=== PATIENT | male | born 1965 | race Caucasian/White ===

== ENCOUNTER 2017-04-12 12:22 | Emergency (ER) | payer BC ==
[2017-04-12] MEDS ORDERED: cefTRIAXone 1,000 MG VIAL (IM USE) IM STA (13:01)
[2017-04-12] MEDS ORDERED: SULFAMETH-TMP DS STARTER PACK 2 TAB BTL PO STA (13:04)
--- NOTE | 2017-04-12 13:05 | ED ---
Skin/Abscess/FB HPI - General Chief complaint: Skin/Abscess/Foreign Body Stated complaint: cyst Time Seen by Provider: 04/12/17 12:48 Source: patient, RN notes reviewed, old records reviewed Mode of arrival: ambulatory Limitations: no limitations - History of Present Illness Initial comments: This is a 32-year-old male presenting to the emergency department chief complaint of the right buttocks abscess. Patient reports that he's had some previous abscesses over her left ear which were drained couple months ago. He states his bite him vaccinated cleared up. Patient reports that over the past 2 weeks he noticed some irritation and inflammation over the right buttocks. He states is painful whenever he has to sit. He states that last night he took about results back and tried to drain it already. Patient reports that he's had no known fever or chills. He reports that he has not had any antibiotics. - Related Data Previous Rx's Medication Instructions Recorded Cephalexin [Keflex] 500 mg PO Q6HR #40 cap 04/12/17 Sulfamethox-Tmp 800-160Mg [Bactrim 2 tab PO Q12HR #40 tab 04/12/17 DS 800-160 mg] Allergies Allergy/AdvReac Type Severity Reaction Status Date / Time No Known Allergies Allergy Verified 04/12/17 12:46 Review of Systems ROS Statement: Those systems with pertinent positive or pertinent negative responses have been documented in the HPI. ROS Other: All systems not noted in ROS Statement are negative. Past Medical History Past Medical History: No Reported History History of Any Multi-Drug Resistant Organisms: None Reported Past Surgical History: Hernia Repair Additional Past Surgical History / Comment(s): hernia x 3 Past Anesthesia/Blood Transfusion Reactions: Motion Sickness Past Psychological History: No Psychological Hx Reported Smoking Status: Current every day smoker Past Alcohol Use History: Occasional Past Drug Use History: None Reported - Past Family History Father Family Medical History: Cancer General Exam - General Exam Comments Initial Comments: Well-appearing 52-year-old male. No acute distress. Limitations: no limitations General appearance: alert, in no apparent distress Head exam: Present: atraumatic, normocephalic, normal inspection Eye exam: Present: normal appearance, PERRL, EOMI. Absent: scleral icterus, conjunctival injection, periorbital swelling ENT exam: Present: normal exam, normal oropharynx, mucous membranes moist Neck exam: Present: normal inspection. Absent: tenderness, meningismus, lymphadenopathy Respiratory exam: Present: normal lung sounds bilaterally. Absent: respiratory distress, wheezes, rales, rhonchi, stridor Cardiovascular Exam: Present: regular rate, normal rhythm, normal heart sounds. Absent: systolic murmur, diastolic murmur, rubs, gallop, clicks GI/Abdominal exam: Present: soft, normal bowel sounds. Absent: distended, tenderness, guarding, rebound, rigid Rectal exam: Present: other (Patient has a 5 cm abscess over the right inner buttock. Patient says is actively draining.) Extremities exam: Present: normal inspection, full ROM, normal capillary refill. Absent: tenderness, pedal edema, joint swelling, calf tenderness Back exam: Present: normal inspection Neurological exam: Present: alert, oriented X3, CN II-XII intact Psychiatric exam: Present: normal affect, normal mood Skin exam: Present: warm, dry, intact, normal color. Absent: rash Course Vital Signs 04/12/17 12:43 Temperature 99.2 F Pulse Rate 104 H Respiratory 20 Rate Blood Pressure 189/91 O2 Sat by Pulse 98 Oximetry Procedures - Incision & Drainage Time Out Performed?: Yes Indication: abscess Site: buttock (right buttock, no involvement of rectum) Size (cm): 5 Anesthetic Used: lidocaine 1% Amount (mLs): 6 I&D Cleaning Method: Iodine Sterile Field Used?: Yes Scalpel Used: #11 I&D Drainage Obtained: Pus, Blood Packing: Iodoform Culture Obtained?: Yes Patient Tolerated Procedure: well, no complications Medical Decision Making - Medical Decision Making Is a pleasant 52-year-old male presenting to emergency Department with a right buttock abscess. Patient reports he originally noticed this starting 2 weeks ago. He went to his primary care doctor and was told to come to emergency department for incision and drainage. Patient was incised and drained. Culture obtained. Some pus was removed from the site however. It appears to be just inflamed tissue for the most of the abscess. Patient was given 1 g of Rocephin IM. He is also given a starter pack for Bactrim DS. Patient took 2 pills in the emergency department. Patient will be discharged with Keflex and Bactrim. Discussed that he needs C1 taking antibiotics. Discussed close follow -up with surgeon or primary care provider on Saturday for packing removal. Patient agrees to treatment plan will comply. Return parameters were discussed. Disposition Clinical Impression: Abscess of right buttock Disposition: HOME SELF-CARE Condition: Good Instructions: Abscess Incision and Drainage (ED) Additional Instructions: Advised to complete the antibiotic prescriptions. Recommending follow-up with primary care provider or surgeon on Saturday for packing removal. Return to the emergency department if any alarming signs or symptoms occur. Prescriptions: Cephalexin [Keflex] 500 mg PO Q6HR #40 cap Sulfamethox-Tmp 800-160Mg [Bactrim DS 800-160 mg] 2 tab PO Q12HR #40 tab Referrals: Enrique Ledezma MD [Primary Care Provider] - 1-2 days Maurice Allen MD [STAFF PHYSICIAN] - 1-2 days Time of Disposition: 13:31
[2017-04-12] MEDS ORDERED: IBUPROFEN 600 MG STARTER PACK 4 TAB BTL PO STA (13:33)
[2017-04-12 14:01] VITALS: BP 160/86; PULSE 92; RESP 18; TEMP 98
== END 2017-04-12 13:59 | disposition home or self-care (01) ==
LOC: EC 12:22
DX: L02.31 Cutaneous abscess of buttock (principal); F17.200 Nicotine dependence, unspecified, uncomplicated
CPT/HCPCS: 87070; 87205; 99283; 10061; 96372; J0696

== ENCOUNTER 2023-05-07 11:29 | Day surgery (SDC) | payer BC ==
--- NOTE | 2023-05-06 13:48 | P.HPOR ---
History of Present Illness H&P Date: 05/06/23 Subjective: This is a 58 year old male that presents today for initial evaluation regarding a right elbow injury that occurred on 04/27/2023 when he was wrestling with his to be son-in-law and hyperflexed his elbow and felt immediate pop with pain and swelling along the posterior aspect of his elbow. Since the injury he has been unable to extend the elbow. 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 He denies any numbness or tingling. Denies any other areas of pain. Physical Examination: RUE: AIN/PI/Ulnar/Median motor intact. Radial/Ulnar/Median SILT. 2+/4 Radial/Ulnar pulses palpated. 5/5 APB, 5/5 FDI. Negative Finkelsteins, negative CMC grind, negative Durkan's compression. Palpable defect along the posterior olecranon area of triceps insertion with TTP at olecranon with swelling and bru ising. Patient unable to extend against gravity at the elbow. Biceps tendon palpable and cubital fossa, negative hook test. Elbow stable to varus and valgus stress. Nontender to palpation over lateral epicondyle Imaging: X-Rays of the right elbow 3V taken on 04/28/23 were reviewed and demonstrate chronic appearing calcifications in the lateral epicondylar region. 1cm post erior avulsed ossific fragment with 15mm of retraction from olecranon region. Mild bone spurring present at medial ulnohumeral joint. Impression: 1.) Right acute triceps tendon rupture Plan: Diagnosis and treatment options were discussed with the patient. Operative vs non operative treatments were discussed. 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 Risks and benefits of surgery including bleeding, infection, damage to surrounding tissue, need for further surgery, residual numbness were discussed and the patient wished to go forward with surgery. I anticipate at least 8 weeks off post operatively before his is able to weightbearing with the operative arm. Labs/EKG are ordered. MRI of right elbow is ordered for pre-operative planning. The patient was agreeable with this plan. -Chang Mclaughlin DO Orthopedic Hand/Upper Extremity Surgeon Past Medical History Past Medical History: Diabetes Mellitus, GERD/Reflux Additional Past Medical History / Comment(s): Diet controlled. History of Any Multi-Drug Resistant Organisms: None Reported Past Surgical History: Hernia Repair Additional Past Surgical History / Comment(s): 2 L inguinal hernias, 1 R inguinal hernia Past Anesthesia/Blood Transfusion Reactions: Motion Sickness Smoking Status: Current every day smoker, Light tobacco smoker - Past Family History Father Family Medical History: Cancer Additional Family Medical History / Comment(s): Colon cancer Medications and Allergies Home Medications Medication Instructions Recorded Confirmed Type Ibuprofen [Motrin] 600 mg PO Q8HR PRN #30 tab 04/28/23 05/06/23 Rx Allergies Allergy/AdvReac Type Severity Reaction Status Date / Time No Known Allergies Allergy Verified 05/06/23 08:31 Physical Examination Osteopathic Statement: *. No significant issues noted on an osteopathic structural exam other than those noted in the History and Physical/Consult.
[~2023-05-07 11:29] MED LIST: DEXAMETHASONE SOD PHOSPHATE 4 MG/ML 1 ML VIAL IV ONE; LACTATED RINGERS 1,000 ML IV SCH; ONDANSETRON 4 MG/2 ML VIAL IVP ONE; fentaNYL (PF) 50 MCG/ML 2 ML AMP IV PRN
[2023-05-07 12:12] LABS: Glucose,Whole Blood 140 mg/dL (70-110)
[2023-05-07] MEDS ORDERED: MIDAZOLAM 2 MG/2 ML VIAL IVP ONE (13:03)
[2023-05-07] MEDS ORDERED: fentaNYL (PF) 50 MCG/ML 2 ML AMP IVP ONE (13:04)
[2023-05-07] MEDS ORDERED: LIDOCAINE 2% INJ 20 MG/ML (2 ML VIAL) ONE (13:15)
[2023-05-07] MEDS ORDERED: SUCCINYLCHOLINE CHLORIDE 200 MG/10 ML VIAL IV ONE (13:15)
[2023-05-07] MEDS ORDERED: ROPIVACAINE 5 MG/ML 30 ML VIAL ONE (13:15)
[2023-05-07] MEDS ORDERED: MIDAZOLAM 2 MG/2 ML VIAL ONE (13:15)
[2023-05-07] MEDS ORDERED: PHENYLEPHRINE-0.9% NACL SYG 1,000 MCG/10 ML SYRINGE ONE (13:15)
[2023-05-07] MEDS ORDERED: PROPOFOL 10 MG/ML 20 ML VIAL IV ONE (13:15)
--- NOTE | 2023-05-07 13:38 | P.ANPRN ---
Procedure Note - Anesthesia - Nerve Block Performed Right Supraclavicular Single Time Out Performed: Yes (1303) Date of Procedure: 05/07/23 Procedure Start Time: 13:04 Procedure Stop Time: 13:09 Location of Patient: PreOp Indication: Acute Post-Operative Pain, Requested by Surgeon Specifically requested for management of pain by DrJessica: Chang Mclaughlin Sedation Type: Sedate with meaningful contact maintained Preparation: Sterile Prep Position: Supine Catheter: None Needle Types: Pajunk Needle Gauge: 21 Ultrasound used to visualize needle placement: Yes Ultrasound used to observe medication spread: Yes Injectate: 0.5% Ropivacaine (see comment for volume) (30cc) Blood Aspirated: No Pain Paresthesia on Injection Noted: No Resistance on Injection: Normal Image Stored and Saved: Yes Events: Uneventful and Well Tolerated
[2023-05-07] MEDS ORDERED: BUPIVACAINE (PF) 0.25% 30 ML VIAL SQ ONE (13:52)
[2023-05-07] MEDS ORDERED: ceFAZolin 1,000 MG in SODIUM CHLORIDE 0.9% 1,000 ML IRRIGATION ONE (13:53)
[2023-05-07] MEDS ORDERED: LACTATED RINGERS 1,000 ML IV ONE (15:02)
--- NOTE | 2023-05-07 15:12 | P.OP ---
Date of Procedure: 05/07/23 Preoperative Diagnosis: Right elbow triceps tendon rupture Postoperative Diagnosis: Right elbow triceps tendon rupture Procedure(s) Performed: Right elbow triceps tendon repair Implants: Arthrex 4.75mm Swivel Lock anchor Anesthesia: ANA regional Surgeon: Chang Mclaughlin Program Management Manager #1: Naseem Mendoza Estimated Blood Loss (ml): 10 Pathology: none sent Condition: stable Disposition: PACU Description of Procedure: This is a 58 year old male who sustained a right triceps tendon rupture and presents today for surgical intervention. Risks and benefits of surgery were discussed with the patient including bleeding, infection, damage to surrounding tissue, need for further surgery as well as risks of anesthesia including pulmonary embolism and even and the patient wished to proceed with surgical intervention. The patient was seen in the pre-operative area by myself. Consent and H&P were completed and updated. The correct extremity was marked in the pre-operative area by myself and all other questions were answered. Operative Narrative: The patient was brought to the operating room by the department of anesthesia. They were placed supine on the operative table and general anesthesia was performed. The patient was then drifted off to sleep by the department of anesthesia. A nonsterile tourniquet was then applied to the operative extremity and the patient was then placed in a hudson bag lateral position with all briana prominences well padded, axillary role was placed. The upper extremity was then prepped and draped in normal sterile fashion. Pre- operative time out was performed indicating the correct patient, procedure and laterality. All in the room agreed. Pre-operative antibiotics were given prior to skin incision. A nonsterile tourniquet was then applied to the operative extremity and the right upper extremity was then prepped and draped in normal sterile fashion. The operative extremity was the exsanguinated with an esmarch bandage and the tourniquet was inflated to 250mmHg. 15 blade scalpel was utilized to make a longitudinal incision over the posterior aspect of the elbow that was directed radially around the olecranon process. Full thickness flaps were then made down to the olecranon and triceps insertion. Bovie cautery was utilized for hemostasis. Hematoma was evacuated with suction and irrigation, there was complete rupture of the triceps tendon insertion off the footprint of the olecranon process. The tendon edges were debrided and footprint was identified. A #2 fiberwire was then inserted at the footprint laterally and passed proximally for 5 passes in a locking Krackow stitch and then brought back distally exiting through the footprint. The same was done along the medial edge of the tendon leaving 4 total strands exiting the footprint. A fiberlink suture was then passed both medially and laterally for shuttling of sutures, this was inserted through the footprint with a free needle with loop left posteriorly. A 2.0mm drill bit was then utilize to drill suture tunnels from proximal to distal on both the medial and lateral aspects of the olecranon making sure to stay extra-articular. The drill for the central 4.75mm Swivel Lock suture anchor was then drilled aiming slightly distal to avoid the articular surface. Vega suture passer was then inserted in retrograde fashion and the 3 limbs of the medial suture were passed, the same was done for the lateral 3 sutures. One suture from the medial group and lateral group was then passed through the fiberlink loop medially and then repassed through the tunnel. The same was done for the lateral tunnel. The suture ends were then passed through the Swivel Lock suture anchor. Appropriate tensioning was performed and the 4.75mm Swivel lock anchor was then tapped and advanced into the bone without complication until it was flush with the cortex. Suture ends were then cut and elbow was ranged and smooth flexion was appreciated and no gapping at the repair site was present. The wound was then irrigated. Layered closure was performed with 3-0 vicryl suture followed by 3-0 nylon suture in a horizontal mattress fashion. Sterile dressing was applied consisting of a adaptic, bacitracin, 4x4s, cast padding, and a anterior slab plaster splint. Tourniquet was let down and the hand had immediate perfusion. The patient was then woken by the department of anesthesia and transferred to PACU in stable condition. Naseem MULLINS was present to assist in hardware placement and tendon repair. Chang Mclaughlin D.O. Orthopedic Hand/Upper Extremity Surgeon
[2023-05-07 15:21] VITALS: TEMP 97.6
[2023-05-07 16:16] VITALS: RESP 16
[2023-05-07 16:38] VITALS: BP 151/90; PULSE 90
== END 2023-05-07 16:39 | disposition home or self-care (01) ==
LOC: OR 11:29
PROVIDERS: ATTEND Orthopaedic Surgery Hand Surgery
DX: S46.319A Strain of muscle, fascia and tendon of triceps, unspecified arm, initial encounter (principal); E11.9 Type 2 diabetes mellitus without complications; K21.9 Gastro-esophageal reflux disease without esophagitis; F17.210 Nicotine dependence, cigarettes, uncomplicated; Z80.0 Family history of malignant neoplasm of digestive organs; Z79.84 Long term (current) use of oral hypoglycemic drugs; X58.XXXA Exposure to other specified factors, initial encounter
CPT/HCPCS: 64415; 24341; C1713 ×2; J2250; J0330; J1100; J0690 ×2; J2405; J3010; J2795; J2704; J2001; J2371

== ENCOUNTER 2023-10-25 06:17 | Day surgery (SDC) | payer BC ==
[~2023-10-25 06:17] MED LIST changes: -DEXAMETHASONE SOD PHOSPHATE 4 MG/ML 1 ML VIAL IV ONE; +LIDOCAINE 1% (10MG/ML) FOR IV START INTRADERMA PRN; -ONDANSETRON 4 MG/2 ML VIAL IVP ONE; -fentaNYL (PF) 50 MCG/ML 2 ML AMP IV PRN
[2023-10-25] MEDS: LACTATED RINGERS 1,000 ML IV ONE ×2 (07:02→07:03)
[2023-10-25 07:08] VITALS: RESP 16; TEMP 98
[2023-10-25 07:12] LABS: Glucose,Whole Blood 132 mg/dL (70-110)
[2023-10-25] MEDS ORDERED: PROPOFOL 10 MG/ML 20 ML VIAL IV ONE (07:47)
--- NOTE | 2023-10-25 08:03 | P.PCN ---
Date of Procedure: 10/25/23 Procedure(s) Performed: BRIEF HISTORY: Patient is a 58-year-old pleasant white male scheduled for an elective colonoscopy as a part of screening for colon cancer. His father was an colon cancer at age 60. PROCEDURE PERFORMED: Colonoscopy with biopsy. PREOPERATIVE DIAGNOSIS: Screening for colon cancer and family history of colon cancer. IV sedation per Anesthesia. PROCEDURE: After informed consent was obtained, the patient, was brought into the endoscopy unit. IV sedation was administered by Anesthesia under continuous monitoring. Digital rectal examination was normal. Initially the Olympus CF-160 flexible video colonoscope was then inserted in the rectum, gradually advanced into the cecum without any difficulty. Careful examination was performed as the scope was gradually being withdrawn. Ileocecal valve and the appendiceal orifice were visualized and appeared normal. Prep was excellent. Mucosa of the cecum, ascending colon, transverse colon, descending colon, sigmoid colon, and rectum appeared normal. Retroflexion was performed in the rectum and no lesions were seen. The patient tolerated the procedure well. IMPRESSION: 3-4 mm proximal rectal polyp status post cold biopsy Rest of the colon appeared normal RECOMMENDATIONS: Findings of this examination were discussed with the patient as well as his family.. He was advised to follow with the biopsy results. Recommend repeat colonoscopy in 5 years because of the family history of colon cancer
[2023-10-25 08:55] VITALS: BP 117/77; PULSE 97
== END 2023-10-25 08:47 | disposition home or self-care (01) ==
LOC: ORWHC2ENDO 06:17
PROVIDERS: ATTEND Internal Medicine Gastroenterology
DX: Z12.11 Encounter for screening for malignant neoplasm of colon (principal); K62.1 Rectal polyp; F17.210 Nicotine dependence, cigarettes, uncomplicated; K21.9 Gastro-esophageal reflux disease without esophagitis; E11.9 Type 2 diabetes mellitus without complications; Z79.84 Long term (current) use of oral hypoglycemic drugs; Z80.0 Family history of malignant neoplasm of digestive organs; Z98.890 Other specified postprocedural states
CPT/HCPCS: 45380; J2704; 88305

== ENCOUNTER 2023-11-12 10:46 | Emergency (ER) | payer BC ==
--- NOTE | 2023-11-12 11:30 | ED ---
Lower Extremity Injury HPI - General Chief Complaint: Extremity Injury, Lower Stated Complaint: Pain in R hip Time Seen by Provider: 11/12/23 11:28 Source: patient, RN notes reviewed Mode of arrival: ambulatory Limitations: no limitations - History of Present Illness Initial Comments: 58-year-old male presented to the ER with chief complaint right hip pain. 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 He states he returned to work about 1 month ago and for the past couple of weeks he has been having an increase in right hip pain. He states the pain is worse at night and with occasional radiation to his knee. He denies any paresthesias, known injuries, weakness. He does endorse mild lower b ack pain. Denies any bowel or bladder incontinence, saddle paresthesias or radiating pain. He has been trying heating pad, ice, IcyHot, [id number] Tylenol with mild relief. - Related Data Previous Rx's Medication Instructions Recorded Ibuprofen [Motrin] 600 mg PO Q8HR PRN #30 tab 04/28/23 Cyclobenzaprine [Flexeril] 5 mg PO TID PRN #15 tablet 11/12/23 Lidocaine 5% Patch [Lidoderm 5% 1 patch TOPICAL DAILY #10 patch 11/12/23 Patch] Allergies Allergy/AdvReac Type Severity Reaction Status Date / Time No Known Allergies Allergy Verified 11/12/23 11:21 Review of Systems ROS Statement: Those systems with pertinent positive or pertinent negative responses have been documented in the HPI. ROS Other: All systems not noted in ROS Statement are negative. Past Medical History Past Medical History: Diabetes Mellitus, GERD/Reflux Additional Past Medical History / Comment(s): Diet controlled DM, fractured ribs after slip on ice 08/27, injured Rt. arm 04/27 wrestling injury History of Any Multi-Drug Resistant Organisms: None Reported Past Surgical History: Hernia Repair, Orthopedic Surgery Additional Past Surgical History / Comment(s): 2 Lt. inguinal hernia & 1 Rt. inguinal hernia repair, Rt. tricep tendon repair 05/27 Past Anesthesia/Blood Transfusion Reactions: No Reported Reaction Past Psychological History: No Psychological Hx Reported Smoking Status: Current every day smoker, Light tobacco smoker Past Alcohol Use History: Occasional Past Drug Use History: Marijuana - Past Family History Father Family Medical History: Cancer Additional Family Medical History / Comment(s): Colon cancer General Exam Limitations: no limitations General appearance: alert, in no apparent distress Head exam: Present: atraumatic, normocephalic, normal inspection Eye exam: Present: normal appearance, PERRL, EOMI. Absent: scleral icterus, conjunctival injection, periorbital swelling Respiratory exam: Present: normal lung sounds bilaterally. Absent: respiratory distress, wheezes, rales, rhonchi, stridor Cardiovascular Exam: Present: regular rate, normal rhythm, normal heart sounds. Absent: systolic murmur, diastolic murmur, rubs, gallop, clicks Extremities exam: Present: normal inspection, full ROM, normal capillary refill, other (No focal bony tenderness. No pain with internal or external rotation of hip. Negative bilateral straight leg raise.). Absent: tenderness, pedal edema, joint swelling, calf tenderness Back exam: Present: normal inspection Neurological exam: Present: alert, oriented X3, CN II-XII intact Psychiatric exam: Present: normal affect, normal mood Skin exam: Present: warm, dry, intact, normal color. Absent: rash Course Vital Signs 11/12/23 11/12/23 11:18 13:00 Temperature 98.0 F 98 F Pulse Rate 96 81 Respiratory 18 18 Rate Blood Pressure 141/89 135/76 O2 Sat by Pulse 100 100 Oximetry Medical Decision Making - Medical Decision Making Was pt. sent in by a medical professional or institution (, PA, BUSINESS RELATIONSHIP MANAGER, urgent care, hospital, or senior care...) When possible be specific @ -No Did you speak to anyone other than the patient for history (EMS, parent, family, police, friend...)? What history was obtained from this source @ -No Did you review nursing and triage notes (agree or disagree)? Why? @ -I reviewed and agree with nursing and triage notes Were old charts reviewed (outside hosp., previous admission, EMS record, old EKG, old radiological studies, urgent care reports/EKG's, senior care records)? Report findings @ -No old charts were reviewed Differential Diagnosis (chest pain, altered mental status, abdominal pain women, abdominal pain men, vaginal bleeding, weakness, fever, dyspnea, syncope, headache, dizziness, GI bleed, back pain, seizure, CVA, palpatations, mental health, musculoskeletal)? @ -Differential Musculoskeletal: Muscular strain, contusion, ligament sprain, fracture, arthritis, septic arthritis, bursitis, cellulitis, muscle spasm, nerve compression, DVT, arterial occlusion, herpes zoster, electrolyte abnormality, tumor.... This is not meant to be in all inclusive list EKG interpreted by me (3pts min.). @ -None X-rays interpreted by me (1pt min.). @ -Right hip AP pelvis x-ray interpreted by me negative for acute process. CT interpreted by me (1pt min.). @ -None done U/S interpreted by me (1pt. min.). @ -None done What testing was considered but not performed or refused? (CT, X-rays, U/S, labs)? Why? @ -None What meds were considered but not given or refused? Why? @ -None Did you discuss the management of the patient with other professionals (professionals i.e. , PA, BUSINESS RELATIONSHIP MANAGER, lab, RT, psych nurse, criminal justice social worker, desktop operator, teacher, housing officer, rehabilitation case coordinator)? Give summary @ -No Was smoking cessation discussed for >3mins.? @ -No Was critical care preformed (if so, how long)? @ -No Were there social determinants of health that impacted care today? How? (Homelessness, low income, unemployed, alcoholism, drug addiction, transportation, low edu. Level, literacy, decrease access to med. care, long-term, rehab)? @ -No Was there de-escalation of care discussed even if they declined (Discuss DNR or withdrawal of care, Hospice)? DNR status @ -No What co-morbidities impacted this encounter? (DM, HTN, Smoking, COPD, CAD, Cancer, CVA, ARF, Chemo, Hep., AIDS, mental health diagnosis, sleep apnea, morbid obesity)? @ -None Was patient admitted / discharged? Hospital course, mention meds given and route, prescriptions, significant lab abnormalities, going to OR and other pertinent info. @ -Discharge. Patient is a 58-year-old male presenting to the ER with a chief complaint of right hip pain. History and physical exam completed. Vitals stable. Patient no signs of acute distress and nontoxic-appearing. Bilateral lower extremities neurovascular intact. No red flag back pain symptoms indicative of cauda equina syndrome. Patient received by mouth Tylenol for symptom control in the ER. X-rays obtained negative for acute process. Results discussed with patient, all questions answered. Flexeril and lidocaine patches prescribed. Advise follow-up with orthopedics, referral given. Return parameters discussed. Patient discharged in stable condition with follow-up with orthopedics. Patient verbally expressed understanding and agreement care plan. Case discussed with ED attending, Dr. Peguero. Undiagnosed new problem with uncertain prognosis? @ -No Drug Therapy requiring intensive monitoring for toxicity (Heparin, Nitro, Insulin, Cardizem)? @ -No Were any procedures done? @ -No Diagnosis/symptom? @ -Hip pain Acute, or Chronic, or Acute on Chronic? @ -Acute Uncomplicated (without systemic symptoms) or Complicated (systemic symptoms)? @ -Uncomplicated Side effects of treatment? @ -No Exacerbation, Progression, or Severe Exacerbation? @ -No Poses a threat to life or bodily function? How? (Chest pain, [place], NM, pneumonia, PE, COPD, DKA, ARF, appy, cholecystitis, CVA, Diverticulitis, Homicidal, Suicidal, threat to staff... and all critical care pts) @ -No - Radiology Data Radiology results: report reviewed, image reviewed Disposition Clinical Impression: Muscle pain, Hip pain Disposition: HOME SELF-CARE Condition: Stable Instructions (If sedation given, give patient instructions): Hip Pain (ED) Additional Instructions: Please follow-up with orthopedics if symptoms persist. Please be aware Flexeril can make you drowsy. Return to the ER for any new or worsening symptoms. Prescriptions: Cyclobenzaprine [Flexeril] 5 mg PO TID PRN #15 tablet PRN Reason: Muscle Spasm Lidocaine 5% Patch [Lidoderm 5% Patch] 1 patch TOPICAL DAILY #10 patch Is patient prescribed a controlled substance at d/c from ED?: No Referrals: Josselin Rodriguez MD [Primary Care Provider] - 1-2 days Elbert Perkins DO [Doctor of Osteopathic Medicine] - 1-2 days Time of Disposition: 12:46
[2023-11-12 11:49] VITALS: RESP 18
[2023-11-12] MEDS: ACETAMINOPHEN TAB 325 MG TAB PO STA (11:52)
--- NOTE | 2023-11-12 12:30 | XR ---
EXAMINATION TYPE: XR Hip RT and AP Pelvis DATE OF EXAM: 11/12/2023 COMPARISON: None HISTORY: Pain TECHNIQUE: 2V right hip supplemented with AP pelvis FINDINGS: Femoral heads articulate with the acetabulum. Symphysis pubis and sacroiliac joints are nor mal. Joint spaces right hip is preserved. No acute fracture or dislocation is evident. IMPRESSION: 1. No acute osseous abnormality right hip
[2023-11-12 13:10] VITALS: BP 135/76; PULSE 81; TEMP 98
== END 2023-11-12 13:00 | disposition home or self-care (01) ==
LOC: EC 10:46
DX: M25.551 Pain in right hip (principal); F17.200 Nicotine dependence, unspecified, uncomplicated
CPT/HCPCS: 73502; 99283